=== PATIENT | female | born 1990 | race Two or more races ===

== ENCOUNTER 2024-08-23 10:50 | Day surgery (SDC) | payer BC, SELFPAY ==
--- NOTE | 2024-08-20 12:19 | EKG_ITS ---
[facility] Test Date: 2024-08-20 Pat Name: AGUSTÍN JOHNSON Department: Room: - Gender: Female Financial Accounting Analyst: HAYLEY : 1990 Requested By: Micah Clemons Order Number: [id number] Reading MD: Micah Clemons Measurements Intervals [place] Rate: 84 P: 42 ND: 143 QRS: 65 QRSD: 94 T: 32 QT: 371 QTc: 440 Interpretive Statements SINUS RHYTHM INCOMPLETE RIGHT BUNDLE BRANCH BLOCK No previous ECG available for comparison /[id number]
[2024-08-20 13:29] LABS: HCG Qualitative,Urine Negative
[2024-08-23 12:32] VITALS: BP 113/65; PULSE 90; RESP 12; TEMP 37.1; O2SAT 100; BMI 23.6
[2024-08-23] MEDS: SODIUM CHLORIDE 0.9% 500 ML 500 ML 20 ML IV (13:12)
[2024-08-23 13:28] VITALS: BP 108/60; PULSE 100; RESP 23; TEMP 36.4; O2SAT 100
[2024-08-23 13:38] VITALS: BP 108/60; PULSE 88; RESP 23; O2SAT 100
[2024-08-23 13:47] VITALS: BP 94/62; PULSE 86; RESP 14; O2SAT 100
[2024-08-23 13:57] VITALS: BP 115/69; PULSE 86; RESP 16; O2SAT 100
== END 2024-08-23 14:17 | disposition home or self-care (01) ==
PROVIDERS: PCP Family Medicine; Referring Provider Specialist; Visit Provider Specialist
PROC: 0DBE8ZX Excision of Large Intestine, Via Natural or Artificial Opening Endoscopic, Diagnostic (ICD-10-PCS; CPT 45380; principal; 2024-08-23 11:00)
DX: K56.699 Other intestinal obstruction unspecified as to partial versus complete obstruction (principal); K64.9 Unspecified hemorrhoids; Z01.810 Encounter for preprocedural cardiovascular examination
CPT/HCPCS: 45378; 81025; 93005; J7040